=== PATIENT | female | born 1950 | race Asian ===

== ENCOUNTER 2019-07-07 09:49 | Emergency (ER) | payer MEDICARE ==
[~2019-07-07] VITALS: Ht 170.2 cm; Wt 68.2 kg
[2019-07-07] MEDS ORDERED: ACETAMINOPHEN 500 MG TABLET PO ONE (10:45)
[2019-07-07 11:50] VITALS: BP 122/84
== END 2019-07-07 12:15 | disposition home or self-care (01) ==
LOC: EMS 09:53
DX: M54.5 Low back pain (principal)
CPT/HCPCS: 73503

== ENCOUNTER 2020-04-06 04:20 | Emergency (ER) | payer MEDICARE ==
[~2020-04-06] VITALS: Ht 167.6 cm; Wt 68.2 kg
[2020-04-06] MEDS ORDERED: KETOROLAC TROMETHAMINE 60 MG/2 ML VIAL IM ONE (05:00)
[2020-04-06] MEDS ORDERED: COLCHICINE 0.6 MG TABLET PO ONE (05:00)
[2020-04-06 05:29] LABS: BASOPHILS % (AUTO) 0.3 % (0.0-2.0); EOSINOPHILS % (AUTO) 0.5 % (1.0-6.0); HEMATOCRIT 36.5 % (36-46); HEMOGLOBIN 12.4 g/dL (12.0-16.0); LYMPHOCYTES # (AUTO) 1.2 K/uL (1.0-4.8); LYMPHOCYTES % (AUTO) 14.9 % (22.0-44.0); MEAN CORPUSCULAR HEMOGLOBIN 30.4 pg (26.0-34.0); MEAN CORPUSCULAR VOLUME 89 fL (80-100); MONOCYTES # (AUTO) 0.4 K/uL (0.1-1.0); MONOCYTES % (AUTO) 4.6 % (2.0-9.0); NEUTROPHILS # (AUTO) 6.1 K/uL (1.8-7.7); NEUTROPHILS % (AUTO) 79.7 % (40.0-70.0); PLATELET COUNT (AUTO) 295 K/uL (150-450); RED CELL DISTRIBUTION WIDTH 13.3 % (11.5-14.5)
[2020-04-06 05:39] LABS: ANION GAP 7 mmol/L (8-16); CALCIUM, TOTAL 9.6 mg/dL (8.8-10.5); CARBON DIOXIDE 30 mmol/L (22-29); CHLORIDE 105 mmol/L (98-107); CREATININE 0.73 mg/dL (0.60-1.30); GLOMERULAR FILTR. RATE CALC > 60 mL/min (>60); GLUCOSE,RANDOM 110 mg/dL (70-110); POTASSIUM 4.4 mmol/L (3.5-5.1); SODIUM SERUM 142 mmol/L (136-145); UREA NITROGEN, BLOOD 12 mg/dL (7-18)
[2020-04-06 05:45] VITALS: BP 131/67
[2020-04-06 05:45] LABS: ALANINE AMINOTRANSFERASE 25 U/L (12-78); ALBUMIN 3.7 g/dL (3.4-5.0); ALKALINE PHOSPHATASE 84 U/L (46-116); ASPARTATE AMINOTRANSFERASE 21 U/L (15-37); BILIRUBIN,TOTAL 0.6 mg/dL (0.1-1.0); TOTAL PROTEIN, SERUM 7.6 g/dL (6.4-8.2); URIC ACID 5.1 mg/dL (2.6-7.2)
== END 2020-04-06 06:08 | disposition home or self-care (01) ==
LOC: EMS 04:20
DX: S93.402A Sprain of unspecified ligament of left ankle, initial encounter (principal); X50.9XXA Other and unspecified overexertion or strenuous movements or postures, initial encounter; Y93.89 Activity, other specified; Y92.89 Other specified places as the place of occurrence of the external cause; Y99.8 Other external cause status
CPT/HCPCS: 36415; 73610; 80053; 84550; 85025; 96372; 99284; J1885

== ENCOUNTER 2021-01-27 06:58 | Emergency (ER) | payer MEDICARE ==
[~2021-01-27] VITALS: Ht 167.6 cm; Wt 68.2 kg
[2021-01-27 07:09] VITALS: BP 128/64
[2021-01-27] MEDS ORDERED: HYDR-4723 PO (07:09)
[2021-01-27] MEDS: IBUPROFEN 800 MG TABLET PO ONE ×2 (07:55→07:59)
== END 2021-01-27 09:37 | disposition home or self-care (01) ==
LOC: EMS 07:00
DX: S86.811A Strain of other muscle(s) and tendon(s) at lower leg level, right leg, initial encounter (principal); X58.XXXA Exposure to other specified factors, initial encounter; Y93.89 Activity, other specified; Y92.89 Other specified places as the place of occurrence of the external cause; Y99.8 Other external cause status
CPT/HCPCS: 93971; 99284; Z7502; Z7610